=== PATIENT | female | born 1980 | race Caucasian/White ===

== ENCOUNTER 2016-10-03 08:04 | Day surgery (SDC) | payer OTHER ==
[~2016-10-03 08:04] MED LIST: Lactated Ringers 1,000 ML IV SCH; Lidocaine 1% 4 ML ONE; Lidocaine 1%/Sod Bicarbonate in NS 8.4% 1 ML Syringe PRN; Midazolam 1 MG/ML 2 ML SDV ONE; Propofol 200 MG/20 ML SDV ONE; Sodium Chloride 0.9% 10 ML Syringe FLUSH PRN; fentaNYL 100 MCG/2 ML SDV ONE
--- NOTE | 2016-10-03 08:40 | PCM.PREANE ---
Preanesthetic Assessment - Allergies Allergies/Adverse Reactions: Allergies Allergy/AdvReac Type Severity Reaction Status Date / Time No Known Allergies Allergy Verified 10/02/16 16:41 PreAnesthesia Questionnaire HEENT History: Reports: None Cardiovascular History: Reports: Other (see below) Other Cardiovascular History: irregular heart beat Respiratory History: Reports: None Gastrointestinal History: Reports: Chronic constipation, Chronic diarrhea Genitourinary History: Reports: None Other OB/BYN History: vaginal discahrge, vulvovaginitis, breast enhancement, tubal Neurological History: Reports: None Psychiatric History: Reports: Anxiety, Depression Endocrine/Metabolic History: Reports: None Hematologic History: Reports: None Immunologic History: Reports: None Oncologic (Cancer) History: Reports: None Dermatologic History: Reports: Other (see below) Other Dermatologic History: rash, non specific skin eruption - Past Surgical History Head Surgeries/Procedures: Reports: None Female Surgical History: Reports: Breast implant, Tubal ligation Musculoskeletal Surgical History: Reports: Other (see below) Other Musculoskeletal Surgeries/Procedures:: foot surgery - SUBSTANCE USE Smoking Status *Q: Current Every Day Smoker (20 years 0.5ppd) Recreational Drug Use History: No - HOME MEDS Home Medications: Home Meds L.acidoph,Paracasei, B.lactis [Probiotic] 1 cap PO DAILY 10/02/16 [History] Multivitamin [Multivitamins] 1 cap PO DAILY 10/02/16 [History] - CURRENT (IN HOUSE) MEDS Current Meds: Current Medications Lactated Ringer's (Ringers, Lactated) 1,000 mls @ 125 mls/hr IV ASDIRECTED MARTY Stop: 10/03/16 23:00 Last Admin: 10/03/16 08:25 Dose: 125 mls/hr Lidocaine/Sodium Bicarbonate (Buffered Lidocaine 1% In Ns 8.4%) 0.25 ml .XX ONETIME PRN PRN Reason: Prior to IV Start Stop: 10/03/16 18:00 Sodium Chloride (Saline Flush) 10 ml FLUSH ASDIRECTED PRN PRN Reason: Keep Vein Open Stop: 10/03/16 18:00 Discontinued Medications Fentanyl (Sublimaze) Confirm Administered Dose 100 mcg .ROUTE .STK-MED ONE Stop: 10/03/16 07:15 Lidocaine HCl (Xylocaine-Mpf 1%) Confirm Administered Dose 4 mls @ as directed .ROUTE .STK-MED ONE Stop: 10/03/16 07:16 Midazolam HCl (Versed 1 Mg/Ml) Confirm Administered Dose 2 mg .ROUTE .STK-MED ONE Stop: 10/03/16 07:16 Propofol (Diprivan 20 Ml) Confirm Administered Dose 200 mg .ROUTE .STK-MED ONE Stop: 10/03/16 07:15 Preanesthetic Assessment - ANESTHESIA/TRANSFUSION/FAMILY HX Anesthesia/Transfusion History: No Prior Transfusion(s), Prior Anesthesia Type of Anesthesia Reaction: Reports: Unknown Family History of Anesthesia Reaction: No Type of Transfusion Reactions: Reports: Unknown - REVIEW OF SYSTEMS Constitutional: Reports: no symptoms SACK CLEANING HAND: Reports: no symptoms Respiratory: Reports: no symptoms Cardiovascular: Reports: no symptoms GI: Reports: diarrhea Other: Reports: None - PHYSICAL ASSESSMENT HR: 82 O2 Sat by Pulse Oximetry: 99 RR: 16 BP: 107/64 Temp: 36.8 C Height: 1.63 m Weight: 68.039 kg NPO Status Date: 10/02/16 NPO Status Time: 23:30 ASA Class: 2 Mental Status: Alert & Oriented x3 Dentition: Reports: Normal Dentition Thyro-Mental Finger Breadths: 3 Mouth Opening Finger Breadths: 3 ROM/Head Extension: Full Respiratory Status: lungs clear to auscultation bilaterally Cardiovascular Status: regular rate & rhythm, normal S1, S2, no murmur, blood pressure WNL - ALLERGIES Allergies/Adverse Reactions: Allergies Allergy/AdvReac Type Severity Reaction Status Date / Time No Known Allergies Allergy Verified 10/02/16 16:41 - BLOOD Blood Available: No Product(s) Available: None - ANESTHESIA PLAN Preop Beta Bishop: No Anesthesia Type Planned: MAC - ACKNOWLEDGEMENTS Pt an Appropriate Candidate for the Planned Anesthesia: Yes Alternatives and Risks of Anesthesia Discussed w Pt/Guardian: Yes Pt/Guardian Understands and Agrees with Anesthesia Plan: Yes
--- NOTE | 2016-10-03 09:21 | PCM48HPAN ---
Post Anesthesia Note - EVALUATION WITHIN 48HRS OF ANESTHETIC Vital Signs in Normal Range: Yes Patient Participated in Evaluation: Yes Respiratory Function Stable: Yes Airway Patent: Yes Cardiovascular Function Stable: Yes Hydration Status Stable: Yes Pain Control Satisfactory: Yes Nausea and Vomiting Control Satisfactory: Yes Mental Status Recovered: Yes
--- NOTE | 2016-10-03 09:22 | PCM.OPNOTE ---
- General Post-Op/Procedure Note Date of Surgery/Procedure: 10/03/16 Operative Procedure(s): colonoscopy with ileal, right, transverse, left, and rectal biopsies using cold forceps Findings: hemorrhoids otherwise normal exam Pre Op Diagnosis: chronic diarrhea Post-Op Diagnosis: internal hemorrhoids Anesthesia Technique: MAC, Moderate sedation Primary Surgeon: Timothy Talbot Pathology: multiple biopsies of the ileum and colon EBL in mLs: 0 Complications: None Condition: Good Free Text/Narrative:: After adequate IV sedation, anesthesia, was obtained the patient was placed on her left side. Perianal inspection revealed minor hemorrhoids. Digital rectal examination was normal. A lubricated colonoscope was passed to the cecum with abdominal pressure. The bowel preparation was excellent. I entered the terminal ileum, which was endoscopically normal. A biopsy was performed, given her history. Similarly the right, transverse, and descending colons were normal as well. I took biopsies of the right, transverse, and ascending colons for histologic review. The sigmoid was endoscopically normal with no mass lesions or inflammatory changes seen. The rectum was unremarkable in both views. Two random biopsies were taken for review. Presented photographs taken for the patient and for the record. Air was removed, as I finished the procedure, which she tolerated well. There were no procedural complications.
[2016-10-03 10:09] VITALS: BP 97/62
== END 2016-10-03 09:56 | disposition home or self-care (01) ==
LOC: JD.SDS 08:04
PROVIDERS: ATTEND Surgery
PROC: 0DBB8ZX Excision of Ileum, Via Natural or Artificial Opening Endoscopic, Diagnostic (ICD-10-PCS; principal; 2016-10-03)
PROC: 0DBP8ZX Excision of Rectum, Via Natural or Artificial Opening Endoscopic, Diagnostic (ICD-10-PCS; 2016-10-03)
PROC: 0DBL8ZX Excision of Transverse Colon, Via Natural or Artificial Opening Endoscopic, Diagnostic (ICD-10-PCS; 2016-10-03)
DX: R19.7 Diarrhea, unspecified (principal); K64.8 Other hemorrhoids; F41.8 Other specified anxiety disorders; I49.9 Cardiac arrhythmia, unspecified; K59.09 Other constipation; F17.210 Nicotine dependence, cigarettes, uncomplicated
CPT/HCPCS: 45380; J2250; J3010; J7120; J2704